=== PATIENT | female | born 1985 | race Caucasian/White ===

== ENCOUNTER → 2018-01-03 | Outpatient (CLI) | payer OTHER ==
[~2018-01-03] MED LIST: EXCEDRINE
[2018-01-03 17:16] LABS: HEMATOCRIT 40.7 % (37-47); HEMOGLOBIN 14.3 g/dL (12.0-16.0); MEAN CELL VOLUME 87.3 fL (80-100); MEAN CORPUSCULAR HEMOGLOBIN 30.7 pg (25-34); MEAN CORPUSCULAR HGB CONC 35.1 g/dl (32-36); MEAN PLATELET VOLUME 10.2 fL (7.4-10.4); PLATELET COUNT 225 K/uL (130-400); RED CELL DISTRIBUTION WIDTH CV 12.5 % (11.5-14.5); WHITE BLOOD COUNT 11.01 K/uL (4.8-10.8)
[2018-01-03 17:27] LABS: ALBUMIN 3.9 gm/dl (3.4-5.0); ALT/SGPT 19 U/L (12-78); AST/SGOT 12 U/L (15-37); BLOOD UREA NITROGEN 11 mg/dl (7-18); CALCIUM 8.8 mg/dl (8.5-10.1); CARBON DIOXIDE 25 mmol/L (21-32); CHOLESTEROL 145 mg/dl (0-200); CREATININE 0.74 mg/dl (0.60-1.20); GLUCOSE 100 mg/dl (70-99); POTASSIUM 3.6 mmol/L (3.5-5.1); SODIUM 138 mmol/L (136-145)
[2018-01-03 17:35] LABS: ALKALINE PHOSPHATASE 99 U/L (45-117); LDL CHOLESTEROL CALCULATED 87 mg/dl; TOTAL PROTEIN 8.1 gm/dl (6.4-8.2)
== END | disposition home or self-care (01) ==
LOC: C.LABBC 14:26
PROVIDERS: ATTEND Neuromusculoskeletal Medicine & OMM
DX: I10 Essential (primary) hypertension (principal); E66.9 Obesity, unspecified; R00.0 Tachycardia, unspecified; R06.02 Shortness of breath

== ENCOUNTER → 2018-01-08 | Outpatient (CLI) | payer OTHER ==
--- NOTE | 2018-01-08 12:55 | DIAGNOSTIC IMAGING REPORT ---
SOFT TISS HEAD/NECK-THYROID CLINICAL HISTORY: 32 years-old Female presenting with R00.0 ,R22.1. TECHNIQUE: Real-time grayscale and color Doppler ultrasound imaging of the thyroid and base of the neck was performed. COMPARISON: None. FINDINGS: Right lobe: Normal echogenicity and echotexture. The right lobe of the thyroid measures 4.9 x 1.6 x 1.5 cm. No parenchymal hyperemia. Subcentimeter cyst noted (benign). Left lobe: Normal echogenicity and echotexture. The left lobe of the thyroid measures 5.3 x 1.6 x 1.3 cm. No parenchymal hyperemia. 7 mm cyst containing a hyperechogenic focus consistent with colloid noted (benign). Isthmus: The isthmus measures 2 mm in thickness. No parenchymal hyperemia. No nodules. IMPRESSION: Few benign thyroid cysts. Otherwise normal thyroid. Electronically signed by: Tam Mcleod M.D. 01/08/2018 12:54 PM Dictated Date/Time: 01/08/2018 12:52 PM
== END | disposition home or self-care (01) ==
LOC: C.ULTRBC 11:25
PROVIDERS: ATTEND Nurse Practitioner Family
DX: R22.1 Localized swelling, mass and lump, neck (principal); R00.0 Tachycardia, unspecified; E04.1 Nontoxic single thyroid nodule

== ENCOUNTER → 2018-01-21 | Outpatient (CLI) | payer OTHER ==
--- NOTE | 2018-01-21 16:59 | DIAGNOSTIC IMAGING REPORT ---
CHEST 2 VIEWS ROUTINE CLINICAL HISTORY: 32 years-old Female presenting with SHORTNESS OF BREATH for one month. TECHNIQUE: PA and lateral views of the chest were obtained. COMPARISON: None. FINDINGS: Cardiomediastinal silhouette normal. Lungs and pleural spaces clear. Osseous structures normal. Upper abdomen normal. IMPRESSION: 1. No acute cardiopulmonary disease. Electronically signed by: Tam Mcleod M.D. 01/21/2018 4:58 PM Dictated Date/Time: 01/21/2018 4:57 PM
== END | disposition home or self-care (01) ==
LOC: C.RADBC 16:09
PROVIDERS: ATTEND Nurse Practitioner Family
DX: R06.02 Shortness of breath (principal)